=== PATIENT | female | born 1970 | race Caucasian/White ===

== ENCOUNTER 2016-11-17 18:14 | Emergency (ER) | payer BC, OTHER ==
[2016-11-17] MEDS ORDERED: Dexamethasone 4 mg/ml Vial ONE (18:25)
[2016-11-17] MEDS ORDERED: Bicillin CR 1.2 MILL UNITS/2 ML SYRINGE ONE (18:25)
== END 2016-11-17 18:43 | disposition home or self-care (01) ==
LOC: BURERS 18:14
DX: J02.9 Acute pharyngitis, unspecified (principal); I10 Essential (primary) hypertension; F41.9 Anxiety disorder, unspecified; F17.210 Nicotine dependence, cigarettes, uncomplicated; Z79.899 Other long term (current) drug therapy
CPT/HCPCS: 96372; J0558; J1100